=== PATIENT | male | born 1990 | race Caucasian/White ===

== ENCOUNTER 2019-05-04 12:36 | Emergency (ER) | payer OTHER, SELFPAY ==
[2019-05-04 12:53] VITALS: BP 130/63; PULSE 78; RESP 16; TEMP 36.5; O2SAT 99
--- NOTE | 2019-05-04 13:10 | ED.GENADULT ---
HPI - General Adult General Chief complaint: Upper Respiratory Infection Stated complaint: Sore Throat Time Seen by Provider: 05/04/19 13:10 Source: patient Mode of arrival: ambulatory Limitations: no limitations History of Present Illness HPI narrative: 29-year-old male patient presents to the [facility] with complaints of a sore throat that started 2 days ago and got worse this morning when he woke up. Patient states he has had a runny nose and stuffy nose recently denies any fevers that he is aware of. Denies any ear pain. Patient states he has had a slight cough. Denies taking anything for his symptoms. Patient unsure if he got a flu shot this season or not. Related Data Home Medications Medication Instructions Recorded Confirmed No Home Medications 05/04/19 05/04/19 Allergies Allergy/AdvReac Type Severity Reaction Status Date / Time No Known Allergies Allergy Unverified 02/17/16 23:59 Review of Systems Review of Systems: Narrative: CONSTITUTIONAL: Denies fever, chills, or sweats. EYES: Denies visual changes, redness, or discharge. ENT: Positive rhinorrhea, congestion, positive sore throat, denies otalgia. CARDIOVASCULAR: Denies chest pain, palpitations, or edema. RESPIRATORY: Denies cough or dyspnea. GASTROINTESTINAL: Denies abdominal pain, nausea, vomiting, or diarrhea. GENITOURINARY: Denies dysuria or hematuria. SKIN: Denies rash or itching. MUSCULOSKELETAL: Denies back pain, joint pain, or myalgia. NEUROLOGIC: Denies headache, numbness, or weakness. PSYCHIATRIC: Denies anxiety or depression. PMFSH Family History Family History Other Diabetes mellitus Family history of rheumatoid arthritis Social History Social History Smoking status: Never smoker Alcohol intake: current Comments At the time of my signature I agree with nursing past medical history, surgical, social, and family history. There is no relevant family history pertinent to the presenting complaint. Exam Narrative: Exam Narrative: GENERAL: Well-appearing, well-nourished, and in no acute distress. HEAD: Normocephalic, atraumatic. No tenderness noted to frontal and maxillary sinuses on palpation EYES: PERRLA and EOMI. ENT: Nares with erythema and edema noted bilaterally, clear rhinorrhea, now epistaxis. Mucous membranes moist. Posterior pharynx with some postnasal drip but no tonsil enlargement no exudates or lesions present. Bilateral TMs are clear no erythema or foreign bodies in the canal. NECK: Supple. No lymphadenopathy CHEST: Clear to auscultation. No respiratory distress. HEART: Regular rate and rhythm. No murmur heard. Normal peripheral pulses. ABDOMEN: Soft, nontender, nondistended, normal active bowel sounds. EXTREMITIES: Normal range of motion. No edema. SKIN: Warm, dry, no rash. NEURO: No focal deficits. Alert and oriented x3. Course Vital Signs Vital signs: Vital Signs Temperature 36.5 C 05/04/19 12:53 Pulse Rate 78 05/04/19 12:53 Respiratory Rate 16 05/04/19 12:53 Blood Pressure 130/63 05/04/19 12:53 Pulse Oximetry 99 05/04/19 12:53 Temperature 36.5 C 05/04/19 12:53 Pulse Rate 78 05/04/19 12:53 Respiratory Rate 16 05/04/19 12:53 Blood Pressure 130/63 05/04/19 12:53 Pulse Oximetry 99 05/04/19 12:53 Vital signs reviewed. Medical Decision Making Differential Diagnosis Differential Diagnosis: Differential diagnosis: Viral pharyngitis, pharyngitis, group A strep, infectious mononucleosis, gonococcal pharyngitis, exudative pharyngitis, oral candidiasis. Chronic allergies, postnasal drip, GERD, abscess formation, but glottitis, retropharyngeal abscess formation, or airway obstruction. Discussed with patient that his bedside strep test today is negative. Discussed with him that this could be some sinus drainage that is causing his symptoms and therefore I would recommen
== END 2019-05-04 13:15 | disposition home or self-care (01) ==
PROVIDERS: Emergency Provider Nurse Practitioner Family; PCP Emergency Medicine
DX: J02.8 Acute pharyngitis due to other specified organisms (principal); J06.9 Acute upper respiratory infection, unspecified
CPT/HCPCS: 87081; 87880; 99203; G0463

== ENCOUNTER 2019-11-14 12:55 | Outpatient (CLI) | payer OTHER, SELFPAY ==
--- NOTE | ~2019-11-14 | MR_ITS ---
EXAMINATION: MR brain/brain stem wo con EXAM DATE: 11/14/2019 14:46 INDICATION: Memory loss, skin paresthesia. TECHNIQUE: Magnetic resonance imaging (MRI) of the brain/brain stem obtained without contrast. Sandy al T1, axial diffusion, gradient echo (T2*), T1, T2, FLAIR sequences obtained. There is no prior st udy for comparison. FINDINGS: There are no areas of restricted diffusion to suggest acute infarction. There is no acute hemorrhage seen on the T2*, a hemosiderin sensitive sequence. No intraparenchymal brain mass. The ve ntricles are normal in size. There are no extra-axial collections. Flow voids are seen in the cereb ral arteries on the T2-weighted sequences consistent with their expected patency. The orbits are unr emarkable. Soft tissue is unremarkable. IMPRESSION: 1. Normal brain MRI examination. Reviewed, dictated and finalized at location A.
--- NOTE | 2019-11-15 10:07 | P.NEURO_ITS ---
Neurology EEG Report General Information Date of Study: 11/14/19 TEST EEG DIAGNOSIS complaints of memory dysfunction CONDITION OF RECORDING awake and drowsy EEG NUMBER 2 0 - 1 94 CLINICAL HISTORY patient has been experiencing difficulty with cognitive function for more than a year EEG DESCRIPTION condition of recording awake and drowsy basic resting occipital frequency consists of small amount of fairly well- organized low voltage to medium voltage 8 to 10 hertz per second alpha admixed with low-voltage 15 to 18 hertz per second beta. During drowsiness low-voltage beta activity is seen diffusely admixed with waxing and waning posterior alpha rhythm. Bilateral symmetrical sleep activity is seen during sleep. Non paroxysmal, nonfocal, nonlateralizing IMPRESSION no significant abnormalities noted
== END 2019-11-14 12:56 | disposition home or self-care (01) ==
PROVIDERS: PCP Emergency Medicine; Visit Provider Psychiatry & Neurology Neurology
DX: R41.3 Other amnesia (principal); R20.2 Paresthesia of skin
CPT/HCPCS: 70551; 95816

== ENCOUNTER 2019-12-20 13:24 | Outpatient (CLI) | payer OTHER, SELFPAY ==
--- NOTE | 2019-12-20 15:00 | NEURO_ITS ---
Patient Number: [id number] Impression: # Complains of numbness of hand and left shoulder discomfort. # Left Carpal Tunnel Syndrome. # No ulnar neuropathy. # Normal needle/EMG exam. Nerve Conduction Studies Anti Sensory Summary Table Stim Site NR Peak (ms) P-T Amp (?V) Site1 Site2 Delta-P (ms) Dist (cm) Chris (m/s) Left Median Anti Sensory (2-3nd Digit) Wrist 3.4 48.0 Wrist 2-3nd Digit 3.4 14.0 41 Wrist 3.5 56.3 Wrist 2-3nd Digit 3.4 14.0 41 Right Median Anti Sensory (2-3nd Digit) Wrist 3.6 19.7 Wrist 2-3nd Digit 3.6 14.0 39 Wrist 3.5 13.7 Wrist 2-3nd Digit 3.6 14.0 39 Left Radial Anti Sensory (Base 1st Digit) Wrist 2.2 20.9 Wrist Base 1st Digit 2.2 0.0 Right Radial Anti Sensory (Base 1st Digit) Wrist 2.2 13.3 Wrist Base 1st Digit 2.2 0.0 Left Ulnar Anti Sensory (5th Digit) Wrist 2.5 63.8 Wrist 5th Digit 2.5 14.0 56 Right Ulnar Anti Sensory (5th Digit) Wrist 2.3 54.3 Wrist 5th Digit 2.3 14.0 61 Motor Summary Table Stim Site NR Onset (ms) O-P Amp (mV) Site1 Site2 Delta-0 (ms) Dist (cm) Chris (m/s) Left Median Motor (Abd Poll Brev) Wrist 4.0 1.5 Elbow Wrist 5.6 31.0 55 Elbow 9.6 1.1 Right Median Motor (Abd Poll Brev) Wrist 3.6 6.8 Elbow Wrist 6.0 33.0 55 Elbow 9.6 3.7 Left Ulnar Motor (Abd Dig Minimi) Wrist 2.5 3.3 A Elbow Wrist 5.8 33.0 57 A Elbow 8.3 2.4 Right Ulnar Motor (Abd Dig Minimi) Wrist 2.7 3.7 A Elbow Wrist 5.9 32.0 54 A Elbow 8.6 3.1 F Wave Studies NR F-Lat (ms) L-R F-Lat (ms) Left Median (Mrkrs) (Abd Poll Brev) 29.45 0.85 Right Median (Mrkrs) (Abd Poll Brev) 28.60 0.85 Left Ulnar (Mrkrs) (Abd Dig Min) 29.42 0.00 Right Ulnar (Mrkrs) (Abd Dig Min) 29.42 0.00 EMG Side Muscle Nerve Root Ins Act Fibs Amp Dur Recrt Comment Right 1stDorInt Ulnar C8-T1 Nml Nml Nml Nml Nml Right Ext Indicis Radial (Post Int) C7-8 Nml Nml Nml Nml Nml Right Ext Digitorum Radial (Post Int) C7-8 Nml Nml Nml Nml Nml Right BrachioRad Radial C5-6 Nml Nml Nml Nml Nml Right PronatorTeres Median C6-7 Nml Nml Nml Nml Nml Right Abd Poll Brev Median C8-T1 Nml Nml Nml Nml Nml Left 1stDorInt Ulnar C8-T1 Nml Nml Nml Nml Nml Left Ext Indicis Radial (Post Int) C7-8 Nml Nml Nml Nml Nml Left Ext Digitorum Radial (Post Int) C7-8 Nml Nml Nml Nml Nml Left BrachioRad Radial C5-6 Nml Nml Nml Nml Nml Left PronatorTeres Median C6-7 Nml Nml Nml Nml Nml Left Abd Poll Brev Median C8-T1 Nml Nml Nml Nml Nml Right ABD Dig Min Ulnar C8-T1 Nml Nml Nml Nml Nml Right Anconeus Radial C7-8 Nml Nml Nml Nml Nml Right Brachialis Musculocut C5-6 Nml Nml Nml Nml Nml Left ABD Dig Min Ulnar C8-T1 Nml Nml Nml Nml Nml Left Anconeus Radial C7-8 Nml Nml Nml Nml Nml Left Biceps Musculocut C5-6 Nml Nml Nml Nml Nml Left Brachialis Musculocut C5-6 Nml Nml Nml Nml Nml Left Triceps Radial C6-7-8 Nml Nml Nml Nml Nml Left Deltoid Axillary C5-6 Nml Nml Nml Nml Nml MTDD
== END 2019-12-20 13:25 | disposition home or self-care (01) ==
PROVIDERS: Visit Provider Psychiatry & Neurology Neurology
DX: R20.2 Paresthesia of skin (principal); G56.02 Carpal tunnel syndrome, left upper limb
CPT/HCPCS: 95886; 95911

== ENCOUNTER 2020-01-13 09:07 | Outpatient (CLI) | payer OTHER, SELFPAY ==
--- NOTE | ~2020-01-13 | MR_ITS ---
EXAMINATION: MR cervical spine wo con DATE: 01/13/2020 10:09 INDICATION: Neck pain. TECHNIQUE: Magnetic resonance imaging (MRI) of the cervical spine was performed without intravenous c ontrast. Sequences included sagittal T2-weighted FSE, sagittal STIR FSE, sagittal T1-weighted FSE, ax ial MERGE, and axial T2-weighted FSE. COMPARISON: None FINDINGS: Bone alignment is normal. Vertebral body heights and intervertebral disc heights are normal . The spinal cord signal intensity is normal. The following disc levels are specifically discussed: C2-C3: The disc does not extend beyond the endplate margin. There is moderate right and mild left unc overtebral joint osteoarthritis. There is mild left facet joint osteoarthritis. There is mild right n eural foraminal stenosis. There is no central canal stenosis. C3-C4: The disc does not extend beyond the endplate margin. There is no uncovertebral joint osteoarth ritis. There is no facet joint osteoarthritis. There is no neural foraminal stenosis. There is no azucena tral canal stenosis. C4-C5: The disc does not extend beyond the endplate margin. There is mild bilateral uncovertebral annmarie nt osteoarthritis. There is mild bilateral facet joint osteoarthritis. There is no neural foraminal s tenosis. There is no central canal stenosis. C5-C6: The disc does not extend beyond the endplate margin. There is no uncovertebral joint osteoarth ritis. There is no facet joint osteoarthritis. There is no neural foraminal stenosis. There is no azucena tral canal stenosis. C6-C7: The disc does not extend beyond the endplate margin. There is no uncovertebral joint osteoarth ritis. There is mild bilateral facet joint osteoarthritis. There is no neural foraminal stenosis. The re is no central canal stenosis. C7-T1: The disc does not extend beyond the endplate margin. There is no uncovertebral joint osteoarth ritis. There is mild bilateral facet joint osteoarthritis. There is no neural foraminal stenosis. The re is no central canal stenosis. IMPRESSION: 1. Mild cervical spondylosis. Reviewed, dictated and finalized at location A. 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
== END 2020-01-13 09:08 | disposition home or self-care (01) ==
PROVIDERS: Visit Provider Psychiatry & Neurology Neurology
DX: M47.812 Spondylosis without myelopathy or radiculopathy, cervical region (principal)
CPT/HCPCS: 72141